=== PATIENT | female | born 1980 | race African-American/Black ===

== ENCOUNTER 2018-03-10 07:15 | Inpatient (IN) | payer BC ==
[2018-03-10 08:07] VITALS: BMI 36.5
[2018-03-10] MEDS ORDERED: CITRIC ACID/SODIUM CITRATE 30 ML UNIT-DOSE CUP PO ONE (08:30)
[2018-03-10] MEDS ORDERED: ELECTROLYTE-148 SOLN 500 ML IV ONE (08:30)
[2018-03-10] MEDS ORDERED: ELECTROLYTE-148 SOLN 1,000 ML IV SCH ×2 (08:30→10:00)
[2018-03-10] MEDS ORDERED: ceFAZolin SODIUM 1 GM VIAL ONE (09:39)
[2018-03-10] MEDS ORDERED: morphine SULFATE/Preservative Free 0.5 MG/ML (1cc Syringe) ONE (09:39)
--- NOTE | 2018-03-10 09:40 | HP ---
Past Medical History - Primary Care Physician PCP:: Tomy Davis - Admission Chief Complaint: 37yo P3 at EGA 39wks admitted for repeat C/S and BTL. History of Present Illness: AMA Prior C/S x 2 NIDDM MS high cholesterol overweight prior PEC History Source: Patient, Medical Record Limitations to Obtaining History: No Limitations - Past Medical History SEASONAL DELIVERY DRIVER: Yes: Multiple Sclerosis Cardiovascular: No: AFIB, Aneurysm, Aortic Insufficiency, Aortic Stenosis, CAD, CHF, Deep Vein Thrombosis, HTN, Hyperlipdemia, RI, Mitral Insufficiency, Mitral Stenosis, Murmur, Pulmonary Hypertension, Other Pulmonary: No: Asthma, Bronchitis, Cancer, COPD, O2 Dependent, Pneumonia, Previously Intubated, Pulmonary Embolus, Pulmonary Fibrosis, Sleep Apnea, Other Gastrointestinal: No: Ascites, Cancer, Constipation, Crohn's Disease, Diverticulitis, Diverticulosis, Esophageal Varices, Gastritis, GERD, GI Bleed, Hemorrhoids, Hiatal Hernia, Inflamatory Bowel Disease, Irritable Bowel Disease, Pancreatitis, Peptic Ulcer Disease, Ulcerative Colitis, Other Hepatobiliary: No: Cirrhosis, Cholelithiasis, Cholecystitis, Choledocholithiasis , Hepatitis A, Hepatitis B, Hepatitis C, Other Renal/: No: Renal Failure, Renal Inusuff, BPH, Cancer, Hematuria, Hemodialysis , Neurogenic Bladder, Renal Calculi, UTI, Other Reproductive: No: Ectopic , Endometriosis, Fibroids, PID, Polycystic Ovary Syndrome, Postmenopausal, Other ...: 3 ...Para: 2 ...Term: 1 ...: 1 ...Spon : 0 ...Induced : 0 ...Multiple Gestation: 0 ... Weeks Gestation by Dates: 39 ...EDC by Edo: 03/17/18 Heme/Onc: No: Anemia, B12 Deficiency, Bleeding Disorder, Cancer, Current Chemotherapy, Current Radiation Therapy, Hemochromatosis, Hypercoaguable State, Myeloproliferative Synd, Sickle Cell Disease, Sickle Cell Trait, Thrombocytopenia, Other Infectious Disease: No: AIDS, C-Diff, Herpes Zoster, HIV, MRSA, STD's, Tuberculosis, VREF, Other Psych: No: Addictions, Anxiety, Bipolar, Depression, Panic, Psychosis, Schizophrenia, Other Musculoskeletal: No: Bursitis, Chronic low back pain, Hemiparesis, Hemiplegia, Osteoarthritis, Paraplegia, Other Rheumatology: No: Fibromyalgia, Gout, Lupus, Rheumatoid Arthritis, Sarcoidosis, Vasculitis, Other ENT: No: Allergic Rhinitis, Sinusitis, Other Endocrine: Yes: Diabetes Mellitus Dermatology: No: Basal Cell, Cellulitis, Eczema, Melanoma, Psoriasis, Squamous Cell, Other - Past Surgical History Past Surgical History: Yes: Hx Myomectomy: No Hx Transabdominal Cerclage: No Additional Surgical History: Hysteroscopy - Smoking History Smoking history: Never smoked Have you smoked in the past 12 months: No - Alcohol/Substance Use Hx Alcohol Use: No History of Substance Use: reports: None - Social History Usual Living Arrangement: Yes: With Child ADL: Independent History of Recent Travel: No Home Medications - Allergies Allergies/Adverse Reactions: Allergies Allergy/AdvReac Type Severity Reaction Status Date / Time ciprofloxacin [From Cipro] Allergy Hives Verified 03/10/18 08:13 ciprofloxacin HCl Allergy Hives Verified 03/10/18 08:13 [From Cipro] - Home Medications Home Medications: Ambulatory Orders Insulin (Levemir) [Levemir Vial] 50 units SCJ AM 03/10/18 Insulin (Levemir) [Levemir Vial] 80 unit SQ HS 03/10/18 Insulin (Novolog) [Novolog -] 40 units SCJ ACLD 03/10/18 Insulin (Novolog) [Novolog Vial] 38 units SQ AM 03/10/18 Vit 93/Iron Fum/Folic [ Formula Tablet] 1 tab PO DAILY Family Disease History - Family Disease History Family Disease History: Diabetes: Father, Mother (HTN), Heart Disease: Father, Other: Mother Review of Systems - Review of Systems Constitutional: reports: No Symptoms Eyes: reports: No Symptoms HENT: reports: No Symptoms Neck: reports: No Symptoms Cardiovascular: reports: No Symptoms Respiratory: reports: No Symptoms Gastrointestinal: reports: No Symptoms Genitourinary: reports: No Symptoms Breasts: reports: No Symptoms Reported Musculoskeletal: reports: No Symptoms Integumentary: reports: No Symptoms Neurological: reports: No Symptoms Endocrine: reports: No Symptoms Psychiatric: reports: No Symptoms Pain Intensity: 0 Physical Exam - Maternity Vital Signs: Vital Signs Temperature 98.4 F 03/10/18 07:53 Pulse Rate 93 H 03/10/18 07:53 Respiratory Rate 20 03/10/18 07:53 Blood Pressure 127/72 03/10/18 07:53 O2 Sat by Pulse Oximetry (%) Constitutional: Yes: Well Nourished, No Distress, Calm Eyes: Yes: WNL, Conjunctiva Clear, EOM Intact HENT: Yes: WNL, Atraumatic, Normocephalic Neck: Yes: WNL, Supple, Trachea Midline Cardiovascular: Yes: WNL, Regular Rate and Rhythm Lungs: Clear to auscultation, Normal air movement - Abdominal Exam/OB Fundal Height: 40 Number of Fetuses: Single Presentation: Vertex Contractions: No Heart Rate (range): 130 Heart Rate Location: Midline Category: I Accelerations: Uniform Decelerations: None - Vaginal Exam/OB Vaginal Bleediing: No Speculum Exam: No Presentation: Vertex/Position - Physical Exam Musculoskeletal: Yes: WNL Extremities: Yes: WNL Edema: No Deep Tendon Reflex Grade: Normal +2 ...Motor Strength: WNL Psychiatric: Yes: WNL, Alert, Oriented Hemorrhage Risk Assessment - Risk Factors Medium Risk Factors: Yes: None High Risk Factors: Yes: None Risk Score: 1 Risk Level: Medium Risk Imaging - Results Ultrasound: Report Reviewed Assessment/Plan 37yo P3 at EGA 39wks admitted for repeat C/S and BTL. We discussed the risks and benefits of C/S at length, including but not limited to scarring, pain, bleeding, infection, injury to underlying organs and structures, need for additional surgery to repair/treat any problems or complications, complications/injuries, etc. The pt verbalized her understanding and requested to proceed with surgery. The pt is aware that all surgeries have risks and no guarantees can be provided.
[2018-03-10] MEDS ORDERED: morphine SULFATE/Preservative Free 0.5 MG/ML (1cc Syringe) SPIN ONE (09:47)
[2018-03-10] MEDS ORDERED: PHENYLEPHRINE HCL 10 MG/1 ML SINGLE DOSE VIAL ONE (09:51)
[2018-03-10] MEDS ORDERED: ONDANSETRON 4 MG/2 ML VIAL IVPUSH PRN (09:53)
[2018-03-10] MEDS ORDERED: IBUPROFEN 600 MG TABLET (FP) PO PRN (09:53)
[2018-03-10] MEDS ORDERED: OXYTOCIN 20 UNITS in 0.9% NS 20 UNIT/1,000 ML INFUS.BAG IV ONE (11:42)
[2018-03-10] MEDS ORDERED: METHYLERGONOVINE MALEATE 0.2 MG/1 ML AMP IM PRN (11:53)
[2018-03-10] MEDS ORDERED: TUBERCULIN PPD 5 TU/0.1ML SYRINGE (IN PATIENT USE ONLY) ID ONE (11:59)
[2018-03-10] MEDS ORDERED: OXYTOCIN 20 UNITS in 0.9% NS 20 UNIT/1,000 ML INFUS.BAG IV SCH (12:15)
[2018-03-10] MEDS ORDERED: CEFAZOLIN 1 GM/D5W 1 GM/50 ML BAG IVPB SCH (12:15)
--- NOTE | 2018-03-10 12:51 | OP ---
Operative Note - Note: Operative Date: 03/10/18 Pre-Operative Diagnosis: at EGA 39wk, Prior C/S, sterilization Operation: repeat LT C/S, BTL Findings: Live baby boy in vtx presentation, no meconium in amniotic fluid. 9/9. Adhesions b/w Fallopian tuves and ovaries and uteroovarian ligaments Post-Operative Diagnosis: Same as Pre-op Surgeon: Tomy Davis Environmental Remediation Consultant: Stephanie Caba Anesthesiologist/DIRECTOR RETIREMENT: Floyd Simpson Anesthesia: Spinal Specimens Removed: Placenta, Left and right Fallopian tubes Estimated Blood Loss (mls): 700 Drains & Tubes with Location: Barbosa Catheter Drains, Volume Out (mls): 250 Blood Volume Replaced (mls): 0 Fluid Volume Replaced (mls): 1,000 Operative Report Dictated: Yes
[2018-03-10] MEDS ORDERED: CEFAZOLIN 2 GM/D5W 2 GM/50 ML ML IVPB SCH (13:17)
[2018-03-10] MEDS ORDERED: IBUPROFEN 800 MG/8 ML IJ IVPB PRN (16:33)
[2018-03-10] MEDS: CEFAZOLIN 2 GM/D5W 2 GM/50 ML ML IVPB SCH (18:28)
[2018-03-11] MEDS: CEFAZOLIN 2 GM/D5W 2 GM/50 ML ML IVPB SCH ×2 (02:15→09:08)
--- NOTE | 2018-03-11 07:13 | PN ---
Post Progress Note - Subjective Subjective: NO COMPLAINS, voided, neg flatus fasting FS - 100 Post Day: 1 Type of Delivery: Repeat C/S Vital Signs: Vital Signs Temperature 98.0 F 03/11/18 06:00 Pulse Rate 81 03/11/18 06:00 Respiratory Rate 20 03/11/18 06:00 Blood Pressure 114/64 03/11/18 06:00 O2 Sat by Pulse Oximetry (%) 100 03/10/18 12:54 Breast Exam: Yes: Soft Uterus: Yes: Fundus Firm Incision: Yes: Dressing dry and intact Abdomen/GI: Yes: Abdomen soft Lochia: Yes: Rubra Lochia, amount: Small Extremities: Yes: Calves non-tender Perineum: Yes: Intact Activity: Ambulating Assessment/Plan 37yo P3 s/p Repeat c/section and BTL POD # 1 VSS, FS wnl, Afebrile Start 2,000 kwame diet Restart Insulin, half peripartum dose, she has Insulin resistance regimen: Novolox 70/30 - 46U am/ 26U pm Encourage ambulation Baby boy for circumcision
--- NOTE | 2018-03-11 08:57 | PN ---
Progress Note, Physician Chief Complaint: s/p c section under spinal anesthesia History of Present Illness: duramorph for post op pain control, post op day one - Current Medication List Current Medications: Active Medications Acetaminophen (Tylenol -) 650 mg PO Q4H PRN PRN Reason: PAIN Bisacodyl (Dulcolax Suppository -) 10 mg RC PRN PRN PRN Reason: CONSTIPATION Diphenhydramine HCl (Benadryl Injection -) 25 mg IVPUSH Q4H PRN PRN Reason: Pruritis Last Admin: 03/11/18 03:24 Dose: 25 mg Enoxaparin Sodium (Lovenox -) 40 mg SQ DAILY IAN Oxytocin/Sodium Chloride (Normal Saline+20 Units Oxytocin -) 20 unit in 1,000 mls @ 125 mls/hr IV ASDIR IAN Stop: 03/11/18 20:14 Last Admin: 03/10/18 12:10 Dose: 125 mls/hr Cefazolin Sodium/Dextrose (Ancef 2 Gm Premixed Ivpb -) 2 gm in 50 mls @ 100 mls /hr IVPB Q8H-IV IAN Stop: 03/11/18 10:29 Last Admin: 03/11/18 02:15 Dose: 100 mls/hr Ibuprofen (Motrin -) 600 mg PO Q4H PRN PRN Reason: PAIN LEVEL 1 - 3 Ibuprofen (Caldolor Injection -) 800 mg IVPB Q8H PRN PRN Reason: FEVER Last Admin: 03/10/18 16:40 Dose: 800 mg Methylergonovine Maleate (Methergine Injection -) 0.2 mg IM Q4H PRN PRN Reason: Excessive Bleeding (L&D) Ondansetron HCl (Zofran Injection) 4 mg IVPUSH Q4H PRN PRN Reason: NAUSEA Last Admin: 03/10/18 17:50 Dose: 4 mg Simethicone (Mylicon -) 80 mg PO Q4H PRN PRN Reason: GAS - Objective Vital Signs: Vital Signs Temperature 98.0 F 03/11/18 06:00 Pulse Rate 81 03/11/18 06:00 Respiratory Rate 20 03/11/18 06:00 Blood Pressure 114/64 03/11/18 06:00 O2 Sat by Pulse Oximetry (%) 100 08/13/18 12:54 Constitutional: Yes: Well Nourished Cardiovascular: Yes: WNL Respiratory: Yes: WNL Gastrointestinal: Yes: WNL Assessment/Plan pain controlled, itching minimal, no headache or backache, no nausea, dept of anesthesia will sign off case at this time.
[2018-03-11 09:07] LABS: BASO % 0.4 % (0-2.0); EOS % 0.3 % (0-4.5); HEMATOCRIT 32.1 % (32.4-45.2); HEMOGLOBIN 10.8 GM/dL (10.7-15.3); LYMPH % 18.7 % (8-40); MCH 30.4 pg (25.7-33.7); MCHC 33.7 g/dl (32.0-36.0); MEAN CELL VOLUME 90.1 fl (80-96); MEAN PLT VOLUME 8.8 fl (7.5-11.1); MONO % 9.8 % (3.8-10.2); NEUT % 70.8 % (42.8-82.8); PLATELET COUNT 241 K/MM3 (134-434); RBC 3.56 M/mm3 (3.60-5.2); RDW 15.3 % (11.6-15.6); WHITE BLOOD COUNT 8.1 K/mm3 (4.0-10.0)
[2018-03-11] MEDS: ENOXAPARIN NA (PORCINE) 40 MG/0.4 ML DISP.SYRIN SQ SCH ×2 (09:07→09:36)
[2018-03-11] MEDS: ACETAMINOPHEN 325 MG TABLET (FP) PO PRN ×2 (10:34→20:41)
[2018-03-11] MEDS: IBUPROFEN 600 MG TABLET (FP) PO PRN ×2 (10:34→20:42)
[2018-03-11] MEDS: SIMETHICONE 80 MG TAB.CHEW (FP) PO PRN (10:34)
[2018-03-11] MEDS ORDERED: BISACODYL 10 MG SUPP.RECT RC PRN (11:54)
[2018-03-11] MEDS ORDERED: oxyCODONE HCL 5 MG TABLET PO PRN (15:25)
[2018-03-11] MEDS: INSULIN (NOVOLOG MIX 70/30) 100 UNITS/ML MDV SQ SCH (16:46)
[2018-03-12] MEDS: INSULIN (NOVOLOG MIX 70/30) 100 UNITS/ML MDV SQ SCH ×2 (06:38→18:01)
[2018-03-12] MEDS: ENOXAPARIN NA (PORCINE) 40 MG/0.4 ML DISP.SYRIN SQ SCH (09:44)
[2018-03-12] MEDS: ACETAMINOPHEN 325 MG TABLET (FP) PO PRN (09:45)
[2018-03-12] MEDS: IBUPROFEN 600 MG TABLET (FP) PO PRN (09:46)
[2018-03-12] MEDS: SIMETHICONE 80 MG TAB.CHEW (FP) PO PRN (09:46)
--- NOTE | 2018-03-12 19:52 | PN ---
Post Progress Note - Subjective Subjective: No complaints. FSG in good range Post Day: 2 Type of Delivery: Repeat C/S Vital Signs: Vital Signs Temperature 98.6 F 03/12/18 10:00 Pulse Rate 88 03/12/18 10:00 Respiratory Rate 20 03/12/18 10:00 Blood Pressure 110/70 03/12/18 10:00 O2 Sat by Pulse Oximetry (%) 100 03/10/18 12:54 Breast Exam: Yes: Soft Uterus: Yes: Fundus Firm, Fundus below umbilicus, Non-tender Incision: Yes: Sutures intact Abdomen/GI: Yes: Abdomen soft, Tolerating PO Lochia: Yes: Rubra Lochia, amount: Small Extremities: Yes: Calves non-tender Perineum: Yes: Intact Activity: Ambulating - Labs Labs: CBC WBC 8.1 K/mm3 (4.0-10.0) 03/11/18 08:39 RBC 3.56 M/mm3 (3.60-5.2) L 03/11/18 08:39 Hgb 10.8 GM/dL (10.7-15.3) 03/11/18 08:39 Hct 32.1 % (32.4-45.2) L 03/11/18 08:39 MCV 90.1 fl (80-96) 03/11/18 08:39 MCH 30.4 pg (25.7-33.7) 03/11/18 08:39 MCHC 33.7 g/dl (32.0-36.0) 03/11/18 08:39 RDW 15.3 % (11.6-15.6) 03/11/18 08:39 Plt Count 241 K/MM3 (134-434) 03/11/18 08:39 MPV 8.8 fl (7.5-11.1) 03/11/18 08:39 Absolute Neuts (auto) 5.7 # 03/11/18 08:39 Neutrophils % 70.8 % (42.8-82.8) 03/11/18 08:39 Lymphocytes % 18.7 % (8-40) D 03/11/18 08:39 Monocytes % 9.8 % (3.8-10.2) 03/11/18 08:39 Eosinophils % 0.3 % (0-4.5) 03/11/18 08:39 Basophils % 0.4 % (0-2.0) 03/11/18 08:39 Nucleated RBC % 0 % (0-0) 03/11/18 08:39 Assessment/Plan 37yo P4 s/p repeat LT C/S and bilateral salpingectomy, doing well stable, afebrile. The pt is asymptomatic for s/sxs of anemia. FSG are in good range care instructions reviewed. Continue routine postop care. Ambulation encouraged.
--- NOTE | 2018-03-12 19:56 | DS ---
Physical Exam-TAPPER OPERATOR Vital Signs: Vital Signs Temperature 98.6 F 03/12/18 10:00 Pulse Rate 88 03/12/18 10:00 Respiratory Rate 20 03/12/18 10:00 Blood Pressure 110/70 03/12/18 10:00 O2 Sat by Pulse Oximetry (%) 100 03/10/18 12:54 Constitutional: Yes: Well Nourished, No Distress, Calm Eyes: Yes: WNL, Conjunctiva Clear HENT: Yes: WNL, Atraumatic, Normocephalic Neck: Yes: WNL, Supple, Trachea Midline Cardiovascular: Yes: WNL, Regular Rate and Rhythm Respiratory: Yes: WNL, Regular, CTA Bilaterally Gastrointestinal: Yes: WNL, Normal Bowel Sounds, Soft, Abdomen, Obese ...Rectal Exam: Yes: Deferred Renal/: Yes: WNL External Genitalia: Yes: Normal Internal Exam Deferred: Yes ....Post : Yes: Uterus firm, Uterus non-tender, Slight lochia rubra Breast(s): Yes: WNL Musculoskeletal: Yes: WNL Extremities: Yes: WNL Edema: No Integumentary: Yes: WNL Wound/Incision: Yes: Clean/Dry, Well Approximated, Sutures Intact, Steri Strips , Open to air Neurological: Yes: WNL, Alert, Oriented ...Motor Strength: WNL Psychiatric: Yes: WNL, Alert, Oriented Labs: CBC, BMP 03/11/18 08:39 Delivery - Delivery Section: Repeat, Low Flap Transverse Type of Anesthesia: Spinal Episiotomy/Laceration: None EBL (cc): 700 Delivery, Single - Stages of Labor Date of Delivery: 03/10/18 Time of Delivery: 10:21 Time Placenta Delivered: 10:22 Placenta: Yes: Manual Removal, Normal Configuration - Condition of Aircraft Shipping Checker/Technology Administrator Present: Yes Name: Ramya Nath Gender: Male Weight: 2.92 kg Total Hours ROM (Hrs/Mins): 0/01 - 1 Minute Total Score: 9 5 Minutes Total Score: 9 - Feeding Plan Initial Plan: Elected not to breastfeed exclusively throughout hospitalization Discharge Summary Reason For Visit: OBESITY COMPLICATING 2ND TRIMESTER Current Active Problems delivery delivered (Acute) Sterilization Procedures: Principal: Repeat LT C/S Other Procedures: Bilateral salpingectomy Hospital Course: Normal recovery Condition: Good - Instructions Diet, Activity, Other Instructions: Physical activity Resume your normal everyday activity as tolerated no heavy lifting or exercise until seen by your surgeon. You may walk unlimited trena of and climb stairs. You may resume driving the car when you feel safe and comfortable behind the wheel. No sexual activity as instructed. Wound care If you have a bandage, leave it on, and keep dry for 48-72 hours. After that time discard the outer bandage. If they are tapes on the skin under the out of bandage leave them in place. They will peel off in the next 7 to 10 days. Do Not Peel them off. You may shower the day after surgery. If there are tapes present on the skin, you may shower over them. Diet There are no dietary restrictions. Eat healthy, high-fiber foods. Drink 6 to 8 glasses of liquid each day. This will assist in keeping your bowels are regular. Pain management You may take Tylenol or acetaminophen or Ibuprofen (for example, Motrin, Advil etc.) from my pain prescription medication is ordered should be taken as prescribed for moderate to severe pain. Call MD for any of the following: Severe pain not relieved by medication Fever of 101 or higher Excessive bleeding or drainage on dressing Inability to urinate Referrals: Tomy Davis MD [Staff Physician] - Disposition: HOME - Home Medications Comprehensive Discharge Medication List: Ambulatory Orders Insulin (Levemir) [Levemir Vial] 50 units SCJ AM 03/10/18 Insulin (Levemir) [Levemir Vial] 80 unit SQ HS 03/10/18 Insulin (Novolog) [Novolog -] 40 units SCJ ACLD 03/10/18 Insulin (Novolog) [Novolog Vial] 38 units SQ AM 03/10/18 Vit 93/Iron Fum/Folic [ Formula Tablet] 1 tab PO DAILY
--- NOTE | 2018-03-13 00:20 | OP ---
DATE OF OPERATION: 03/10/2018 PREOPERATIVE DIAGNOSIS: at estimated gestational age of 39 weeks, previous section, noninsulin dependent diabetes mellitus, obesity, advanced maternal age, sterilization. POSTOPERATIVE DIAGNOSIS: Repeat low transverse section, bilateral salpingectomy. SURGEON: Tomy Davis M.D. BUSINESS CONSULTANT: Stephanie Caba M.D. ANESTHESIOLOGIST: Floyd Simpson M.D. ANESTHESIA: Spinal. COMPLICATIONS: None. ESTIMATED BLOOD LOSS: 700 mL. INTRAVENOUS FLUIDS: 1000 mL. URINE OUTPUT: 250 mL of clear urine. PATHOLOGY: Placenta and entire left and right fallopian tubes. FINDINGS: Examination under anesthesia revealed a gravid uterus approximately 39 to 40 weeks' gestation during surgery, normal gravid uterus noted. Normal bilateral ovaries. Live baby boy in vertex presentation, no meconium in amniotic fluids. Apgars are 9 and 9. During sterilization procedure, dense adhesions were noted between the fallopian tubes and ovaries as well as uteroovarian ligaments, necessitating a bilateral salpingectomy to accomplish the sterilization. Ryan PROCEDURE: The patient was met preoperatively. Risks, benefits, and alternatives of surgery were discussed in detail. All questions were answered. The patient was brought to the OR with the IV running. She was placed on the surgical table in a sitting position. The spinal anesthesia was achieved without difficulty. The patient was then placed in a supine position with a leftward tilt. She was prepped and draped in the usual sterile fashion. A Barbosa catheter was inserted and left to drain to gravity. An examination was performed prior to section with the findings as described above. A timeout procedure was conducted as per standard protocol. The surgeons then proceeded with the operation. A Pfannenstiel skin incision was made with the knife along the prior scar. The incision was carried down to the level of fascia. The fascia was incised in the midline. The incision was extended bilaterally using whalen scissors. The fascia was dissected away from the rectus muscles superiorly and inferiorly using sharp dissection. The rectus muscles were in the midline. The peritoneum was identified and entered sharply. The peritoneal incision was extended superiorly and inferiorly. The bladder peritoneum was dissected away from the lower uterine segment. The bladder was reflected downwards. The uterus was incised transversely in the lower uterine segment. The uterine incision was extended bilaterally using bandage scissors. The amniotic sac was ruptured, and the baby was delivered from vertex presentation. No meconium in amniotic fluid. No complications at delivery. The baby's mouth and nose were suctioned immediately upon delivery. The baby is crying spontaneously. The umbilical cord was clamped and cut, and the baby was handed to the waiting wig stylist. The placenta was removed manually without difficulty. The uterus was cleared of all clots and debris using moist laparotomy laps. The uterus was then exteriorized. The uterine incision was repaired using a 0 Biosyn suture in a running, locking stitch. Good hemostasis was noted. The uterine incision was then imbricated using a 0 Biosyn suture with good hemostasis and approximation. The left fallopian tube was then identified and followed to the fimbriated end. The fallopian tubes were noted to be densely adherent to both ovaries and uteroovarian ligaments. Initially an attempt was made to perform a tubal ligation using a modified Ferrum method. However, due to multiple blood vessels on adhesions, bleeding was encountered which required a left salpingectomy. The left fallopian tube was sent to pathology for evaluation. Good hemostasis was noted. The right fallopian tube was also noted to be adherent to the right ovary and uteroovarian ligament. The dissection of adhesions was undertaken, however due to prominent vasculature as well as adhesions, bleeding was encountered, necessitating a right salpingectomy. The right fallopian tube was also sent to pathology for examination. Good hemostasis was achieved. Once this was accomplished, the uterus was returned to the abdomen. The gutters were cleared of all clots and debris. The bladder peritoneum was approximated using a 0 Biosyn suture. The operative site was irrigated using copious amounts of normal saline. One the saline was aspirated, good hemostasis was confirmed. The abdominal peritoneum was closed using a 2-0 chromic suture. The rectus muscles were approximated using several interrupted 2-0 chromic sutures. The fascia was closed using a 0 Vicryl suture with good hemostasis and approximation. The subcutaneous adipose tissues were approximated to eliminate space using several interrupted 0 Vicryl sutures. The skin was closed using a 4-0 Biosyn suture with a subcutaneous stitch. Sponge, lap, and instrument counts were correct. Patient tolerated procedure well and was transferred to recovery room awake and in stable condition and awake. Lisy [id number]
[2018-03-13] MEDS: IBUPROFEN 600 MG TABLET (FP) PO PRN (00:45)
[2018-03-13] MEDS: ACETAMINOPHEN 325 MG TABLET (FP) PO PRN (00:45)
[2018-03-13] MEDS: SIMETHICONE 80 MG TAB.CHEW (FP) PO PRN (00:46)
[2018-03-13 07:06] LABS: BASO % 0.3 % (0-2.0); EOS % 2.8 % (0-4.5); HEMATOCRIT 27.8 % (32.4-45.2); HEMOGLOBIN 9.6 GM/dL (10.7-15.3); LYMPH % 25.2 % (8-40); MCH 30.7 pg (25.7-33.7); MCHC 34.5 g/dl (32.0-36.0); MEAN CELL VOLUME 88.9 fl (80-96); MEAN PLT VOLUME 8.1 fl (7.5-11.1); MONO % 8.2 % (3.8-10.2); NEUT % 63.5 % (42.8-82.8); PLATELET COUNT 257 K/MM3 (134-434); RBC 3.13 M/mm3 (3.60-5.2); RDW 14.8 % (11.6-15.6); WHITE BLOOD COUNT 7.3 K/mm3 (4.0-10.0)
[2018-03-13] MEDS: INSULIN (NOVOLOG MIX 70/30) 100 UNITS/ML MDV SQ SCH (07:19)
[2018-03-13] MEDS: ENOXAPARIN NA (PORCINE) 40 MG/0.4 ML DISP.SYRIN SQ SCH (10:40)
[2018-03-13 14:40] VITALS: BP 130/74; PULSE 76; TEMP 98.1
--- NOTE | 2018-03-18 14:37 | PATH ---
Surgical Pathology Report Patient Name: PATSY SALAZAR [facility]. Rec. #: [id number] /Age/Gender: 1980 (Age: 37) / F Account: [id number] Location: [facility] OBS/HOT END OPERATOR Taken: 03/10/2018 Received: 03/11/2018 Reported: 03/18/2018 Physicians: Tomy Davis M.D. Specimen(s) Received A: PLACENTA B: LEFT FALLOPIAN TUBE C: RIGHT FALLOPIAN TUBE Clinical History Final Diagnosis A. PLACENTA, SECTION: 485 g THIRD TRIMESTER PLACENTA WITH TRIVASCULAR UMBILICAL CORD AND UNREMARKABLE PLACENTAL MEMBRANES. B. FALLOPIAN TUBE, LEFT, PARTIAL EXCISION: FULL LUMINAL PORTION OF FALLOPIAN TUBE WITH PARATUBAL CYST AND FOCAL DECIDUAL REACTION. C. FALLOPIAN TUBE, RIGHT, PARTIAL EXCISION: FULL LUMINAL PORTION OF FALLOPIAN TUBE WITH PARATUBAL CYST AND FOCAL DECIDUAL REACTION. Electronically Signed Courtney Barnes M.D. Gross Description A. The specimen is received fresh labeled placenta and is a 485 gram, 15.0 x 13.5 x 2.8 cm. placenta with attached membranes and umbilical cord. The attached membranes are cottrell, translucent with focal opacities and insert marginally. The umbilical cord measures 11 cm. in length and averages 1.1 cm. in diameter. The cord inserts eccentrically, 1.5 cm. to the nearest margin. No true knots or strictures are identified. Cut surface of the umbilical cord reveals 3 vessels. The surface is antonio blue with moderate fibrin deposition and appropriate caliber vessels. The maternal surface is red-brown and intact. Sectioning reveals red-brown, spongy parenchyma. No lesions are identified. Coppersmith Helper sections are submitted in three cassettes as follows: 1- membrane rolls and umbilical cord; 2-3- full thickness sections of placenta. B. Received in formalin labeled "portion of left fallopian tube," is a 2 cm in length portion of fallopian tube. The outer surface is cottrell-ricks and smooth. Sectioning reveals an unremarkable lumen. The fimbria are separately received within the same container. The fimbria display an attached 1.0 cm in greatest dimension paratubal cyst. Coppersmith Helper sections are submitted in 2 cassettes as follows: 1-fimbria with cyst; 2-cross sections of fallopian tube. C. Received in formalin labeled "portion of right tube," is a 2 cm in length fimbriated portion of fallopian tube with an attached 1.6 cm in greatest dimension paratubal cyst. Sectioning of the fallopian tube reveals an unremarkable lumen. Coppersmith Helper sections are submitted in 2 cassettes as follows: 1-fimbria and cross section of fallopian tube with attached paratubal cyst; 2-additional cross sections of fallopian tube. 03/17/2018 [facility]03/17/2018
== END 2018-03-13 12:20 | disposition home or self-care (01) | DRG 765 ==
LOC: JLDR 07:15 → J3W 13:15
PROVIDERS: ADMIT Obstetrics & Gynecology; ATTEND Obstetrics & Gynecology
PROC: 10D00Z1 Extraction of Products of Conception, Low, Open Approach (ICD-10-PCS; principal; 2018-03-10)
PROC: 0UB70ZZ Excision of Bilateral Fallopian Tubes, Open Approach (ICD-10-PCS; 2018-03-10)
DX: O34.211 Maternal care for low transverse scar from previous cesarean delivery (principal); O24.913 Unspecified diabetes mellitus in pregnancy, third trimester; N85.8 Other specified noninflammatory disorders of uterus; O99.214 Obesity complicating childbirth; E66.9 Obesity, unspecified; Z68.36 Body mass index [BMI] 36.0-36.9, adult; Z3A.39 39 weeks gestation of pregnancy; Z37.0 Single live birth; Z30.2 Encounter for sterilization
CPT/HCPCS: 36415; 82962; 85025; 87081; 88302-TC; 88307-TC; 94010

== ENCOUNTER 2018-04-30 10:59 | Emergency (ER) | payer BC ==
[2018-04-30 11:13] VITALS: BP 138/78; PULSE 75; TEMP 98; BMI 32.2
--- NOTE | 2018-04-30 12:25 | PDOC ---
History of Present Illness - General Chief Complaint: Wound Stated Complaint: WOUND POST 7WKS Time Seen by Provider: 04/30/18 12:13 - History of Present Illness Initial Comments: 37-year-old female with a past medical history significant for multiple sclerosis, she takes interferon. As well as type 1 diabetes. She is well- controlled and her sugars have been no higher than 145. Presents for evaluation of a lesion on her abdomen which is been there for about 2 weeks. Seen in urgent care facility they urged her to do warm compresses however today the lesion to started to drain. 04/30/18 12:20 Past History - Past Medical History Allergies/Adverse Reactions: Allergies Allergy/AdvReac Type Severity Reaction Status Date / Time ciprofloxacin [From Cipro] Allergy Hives Verified 04/30/18 11:13 ciprofloxacin HCl Allergy Hives Verified 04/30/18 11:13 [From Cipro] Home Medications: Ambulatory Orders Insulin (Levemir) [Levemir Vial] 50 units SCJ AM 03/10/18 Insulin (Levemir) [Levemir Vial] 80 unit SQ HS 03/10/18 Insulin (Novolog) [Novolog -] 40 units SCJ ACLD 03/10/18 Insulin (Novolog) [Novolog Vial] 38 units SQ AM 03/10/18 Vit 93/Iron Fum/Folic [ Formula Tablet] 1 tab PO DAILY Ibuprofen [Motrin -] 600 mg PO QID #28 tablet 03/13/18 Cephalexin [Keflex] 500 mg PO QID #40 capsule 04/30/18 Sulfamethoxazole/Trimethoprim [Bactrim Ds -] 1 tab PO BID #14 tablet 04/30/18 Asthma: No Cancer: No Cardiac Disorders: No COPD: No Diabetes: Yes (IDDM) HTN: No Seizures: No Thyroid Disease: No Other medical history: MS - Surgical History Cholecystectomy: Yes - Suicide/Smoking/Psychosocial Hx Smoking History: Never smoked Have you smoked in the past 12 months: No Information on smoking cessation initiated: No Hx Alcohol Use: No Drug/Substance Use Hx: No Substance Use Type: None Hx Substance Use Treatment: No Review of Systems - Review of Systems Integumentary: Yes: See HPI, Lesions All Other Systems: Reviewed and Negative *Physical Exam - Vital Signs Last Vital Signs Temp Pulse Resp BP Pulse Ox 98 F 75 17 138/78 100 04/30/18 11:10 04/30/18 11:10 04/30/18 11:10 04/30/18 11:10 04/30/18 11:10 - Physical Exam Comments: HEAD: NC/AT EYES: Conjuntiva clear ABDOMEN: Soft NT ND, there is a pustule in the left lower quadrant with normal surrounding skin color and temperature and firmness without fluctuance subcutaneously there is no drainage. MS: Full ROM in all joints without edema NEUROLOGIC: No gross sensory or motor deficits, NVID SKIN: Normal color and temperature no lesions or rashes 04/30/18 12:21 Medical Decision Making - Medical Decision Making Because of the diabetes I will place her on prophylactic Bactrim and Keflex. I have encouraged her to apply warm compresses. I will give her general surgery follow-up for further evaluation and treatment options. There is nothing to incise and drain today. 04/30/18 12:21 *DC/Admit/Observation/Transfer Diagnosis at time of Disposition: Pustular lesion - Discharge Dispostion Disposition: HOME Condition at time of disposition: Stable Decision to Admit order: No - Prescriptions Prescriptions: Cephalexin [Keflex] 500 mg PO QID #40 capsule Sulfamethoxazole/Trimethoprim [Bactrim Ds -] 1 tab PO BID #14 tablet - Referrals Referrals: ON STAFF,NOT [Primary Care Provider] - Adis Kenney MD [Staff Physician] - - Patient Instructions Additional Instructions: Return to the emergency room should your symptoms worsen or go unresolved. Please follow-up with general surgery in 1-2 days for further evaluation and treatment options. Please take the antibiotics as directed and apply warm compresses 5-6 times a day. Keep the area clean with soap and water and leave it open to air. If begins to drain use a dry sterile dressing to cover - Post Discharge Activity
== END 2018-04-30 12:32 | disposition home or self-care (01) ==
LOC: JERFT 10:59
DX: L08.9 Local infection of the skin and subcutaneous tissue, unspecified (principal); E10.9 Type 1 diabetes mellitus without complications; G35 Multiple sclerosis; Z79.4 Long term (current) use of insulin
CPT/HCPCS: 99281-25

== ENCOUNTER 2021-05-30 04:22 | Emergency (ER) | payer BC ==
[2021-05-30 04:27] VITALS: BP 122/85; PULSE 76; TEMP 98.1; BMI 39.0
== END 2021-05-30 04:58 | disposition home or self-care (01) ==
LOC: JER 04:22
DX: Z71.1 Person with feared health complaint in whom no diagnosis is made (principal)
CPT/HCPCS: 99281-25

== ENCOUNTER 2021-09-26 11:09 | Emergency (ER) | payer BC ==
[2021-09-26 11:17] VITALS: TEMP 98.6; BMI 38.2
[2021-09-26] MEDS ORDERED: IBUPROFEN 400 MG TABLET (FP) PO PRN (12:17)
[2021-09-26] MEDS ORDERED: ACETAMINOPHEN 500 MG TABLET (FP) PO ONE (12:17)
[2021-09-26] MEDS ORDERED: IBUPROFEN 400 MG TABLET (FP) PO ONE ×2 (12:22→12:23)
[2021-09-26] MEDS ORDERED: ACETAMINOPHEN 325 MG TABLET (FP) ONE (12:23)
[2021-09-26 13:27] VITALS: BP 141/86; PULSE 70
== END 2021-09-26 13:33 | disposition home or self-care (01) ==
LOC: JER 11:09
DX: R51.9 Headache, unspecified (principal); I10 Essential (primary) hypertension
CPT/HCPCS: 99283-25

== ENCOUNTER 2023-02-02 08:32 | Emergency (ER) | payer BC ==
[2023-02-02 09:03] VITALS: BMI 38.0
[2023-02-02] MEDS ORDERED: DEXAMETHASONE SOD PHOSPHATE 10 MG/1 ML VIAL IVPUSH ONE (09:14)
[2023-02-02] MEDS ORDERED: KETOROLAC TROMETHAMINE 15 MG/ML VIAL IVPUSH ONE (09:14)
[2023-02-02] MEDS ORDERED: DEXAMETHASONE SOD PHOSPHATE 10 MG/1 ML VIAL ONE (09:26)
[2023-02-02] MEDS ORDERED: KETOROLAC TROMETHAMINE 15 MG/ML VIAL ONE (09:26)
[2023-02-02 09:40] LABS: HEMATOCRIT 36.1 % (32.4-45.2); HEMOGLOBIN 12.1 GM/dL (10.7-15.3); MCH 27.8 pg (25.7-33.7); MCHC 33.6 g/dl (32.0-36.0); MEAN PLT VOLUME 7.5 fl (7.5-11.1); PLATELET COUNT 296 10^3/uL (134-434); RBC 4.35 M/mm3 (3.60-5.2); RDW 14.1 % (11.6-15.6); WHITE BLOOD COUNT 7.6 K/mm3 (4.0-10.0)
[2023-02-02 09:50] LABS: CALCIUM 9.3 mg/dL (8.5-10.1)
[2023-02-02 09:51] LABS: ALBUMIN 3.4 g/dl (3.4-5.0); BLOOD UREA NITROGEN 11.2 mg/dL (7-18); CO2 29 mmol/L (21-32); GLUCOSE,RANDOM 123 mg/dL (74-106)
[2023-02-02 09:54] LABS: CREATININE 0.8 mg/dL (0.55-1.3); SGOT/AST 139 U/L (15-37); SGPT/ALT 193 U/L (13-61)
[2023-02-02 09:56] LABS: BILIRUBIN,TOTAL 0.6 mg/dL (0.2-1); TOT PROT 7.8 g/dl (6.4-8.2)
[2023-02-02 09:57] LABS: ALK PHOS 599 U/L (45-117)
[2023-02-02 10:04] LABS: CHLORIDE 102 mmol/L (98-107); POTASSIUM 5.1 mmol/L (3.5-5.1); SODIUM 136 mmol/L (136-145)
[2023-02-02 10:05] LABS: ANION GAP 6 MMOL/L (8-16)
[2023-02-02 10:31] LABS: ANISOCYTOSIS 0; HELMET CELLS 0; HOWELL-JOLLY BODIES 0; MACROCYTOSIS 0; OVALOCYTE 0; ROULEAU 0; SICKELED CELLS 0; TARGET CELLS 0; TEAR DROP CELLS 0; TOXIC GRANULATION 0
[2023-02-02 15:37] VITALS: RESP 19
[2023-02-02 15:38] VITALS: BP 129/83; PULSE 97; TEMP 98.9
[2023-02-02] MEDS ORDERED: VANCOMYCIN 1 GM in D5W (PRE-DOCKED) 1,000 MG/250 ML (RESTRICTED TO ID ONLY IVPB ONE (16:15)
[2023-02-02] MEDS ORDERED: PIPERACILLIN/TAZOB 4.5 GM 4.5 GM in DEXTROSE 5%-WATER 100 ML IVPB ONE (16:16)
[2023-02-02] MEDS ORDERED: PIPERACILLIN/TAZOB 4.5 GM 4.5 GM/100 ML BAG IVPB ONE (16:20)
[2023-02-02] MEDS ORDERED: VANCOMYCIN/WATER FOR INJ (PEG) 1,000 MG/200 ML BAG IVPB ONE (16:20)
== END 2023-02-02 17:58 | disposition home or self-care (01) ==
LOC: JER 08:32
PROC: 3E03329 Introduction of Other Anti-infective into Peripheral Vein, Percutaneous Approach (ICD-10-PCS; principal; 2023-02-02)
PROC: 3E033GC Introduction of Other Therapeutic Substance into Peripheral Vein, Percutaneous Approach (ICD-10-PCS; 2023-02-02)
PROC: 3E03329 Introduction of Other Anti-infective into Peripheral Vein, Percutaneous Approach (ICD-10-PCS; 2023-02-02)
PROC: 3E0333Z Introduction of Anti-inflammatory into Peripheral Vein, Percutaneous Approach (ICD-10-PCS; 2023-02-02)
DX: R07.0 Pain in throat (principal); R50.9 Fever, unspecified; R13.10 Dysphagia, unspecified; J36 Peritonsillar abscess; Z79.1 Long term (current) use of non-steroidal anti-inflammatories (NSAID)
CPT/HCPCS: 36415; 70491-TC; 80053; 82962; 84702; 85025; 99285-25; J1100

== ENCOUNTER 2023-04-15 05:02 | Day surgery (SDC) | payer BC ==
[2023-04-10 13:25] VITALS: BMI 34.3
[2023-04-15] MEDS ORDERED: ONDANSETRON 4 MG/2 ML VIAL IVPUSH PRN (14:13)
[2023-04-15] MEDS ORDERED: oxyCODONE HCL 5 MG TABLET PO PRN (14:13)
[2023-04-15] MEDS ORDERED: LACTATED RINGERS SOLUTION 1,000 ML IV SCH (14:15)
[2023-04-15] MEDS ORDERED: ONDANSETRON 4 MG/2 ML VIAL ONE (14:48)
[2023-04-15] MEDS ORDERED: KETOROLAC TROMETHAMINE 30 MG/1 ML VIAL ONE (14:48)
[2023-04-15] MEDS ORDERED: LIDOCAINE HCL/PF 2% SDV 5ML VIAL ONE (14:48)
[2023-04-15] MEDS ORDERED: PROPOFOL 40 ML ONE (14:49)
[2023-04-15] MEDS ORDERED: MIDAZOLAM HCL 2 MG/2 ML SINGLE DOSE VIAL ONE (14:49)
[2023-04-15] MEDS ORDERED: ceFAZolin SODIUM 1 GM VIAL IVPB ONE (15:54)
[2023-04-15] MEDS ORDERED: ceFAZolin SODIUM 1 GM VIAL ONE (15:56)
[2023-04-15 19:06] VITALS: RESP 18
[2023-04-15 19:52] VITALS: BP 126/76; PULSE 85; TEMP 97.7
== END 2023-04-15 19:50 | disposition home or self-care (01) ==
LOC: JASU-SURG 05:02
PROVIDERS: ATTEND Obstetrics & Gynecology
PROC: 0UDB8ZZ Extraction of Endometrium, Via Natural or Artificial Opening Endoscopic (ICD-10-PCS; principal; 2023-04-15 13:00)
DX: N92.1 Excessive and frequent menstruation with irregular cycle (principal); N93.0 Postcoital and contact bleeding
CPT/HCPCS: 81025; 82962; 88305-TC; 94760